=== PATIENT | female | born 2000 | race African-American/Black ===

== ENCOUNTER 2023-09-29 18:57 | Inpatient (IN) | payer BC ==
[~2023-09-29] VITALS: Ht 165.1 cm; Wt 79.7 kg
[~2023-09-29 18:57] MED LIST: Thiamine 100 MG TAB PO SCH
[2023-09-29 20:43] VITALS: BP 124/93; PULSE 122; TEMP 97.5
[2023-09-29] MEDS ORDERED: ADDERALL20 MG PO (20:57)
[2023-09-29] MEDS ORDERED: Pantoprazole 40 MG in NS 10 ML IV SCH (21:00)
[2023-09-29] MEDS ORDERED: Mag/Al Hydrox/Simeth Susp 30 ML CUP PO PRN (21:00)
[2023-09-29] MEDS ORDERED: Ondansetron 4 MG/2 ML VIAL IV PRN (21:00)
[2023-09-29] MEDS ORDERED: Acetaminophen 325 MG TAB PO PRN (21:00)
--- NOTE | 2023-09-29 21:00 | NUR ---
Admitted to medical floor from [facility]-came via EMS,, pleasant , oriented x3, teary when talking about drinking habits, at bedside, states abd pain 8/10, anxious, tremors noted-- states she almost feels "jerky". very thirsty--did drink water and applejuice,, Robin SILVEIRA starting to put in orders- will be up to see her.
[2023-09-29 21:14] VITALS: BP_SYST 132
--- NOTE | 2023-09-29 21:35 | NUR ---
Robin here to see pt - put on CIWA protocol, Fall Risk protocol and seizure precautions-- pads on bed, ordered Librium taper-- would like that given as soon as possible- Martha aware of vitals-- tachy 122, put on Tele.
[2023-09-29] MEDS ORDERED: LORazepam 2 MG/ML 1 ML VIAL IV PRN (21:45)
[2023-09-29] MEDS ORDERED: Folic Acid 1 MG,Thiamine 200 MG in NS 1,000 ML IV ONE (21:45)
[2023-09-29 22:00] VITALS: BP 132/89; PULSE 106; TEMP 98
[2023-09-29 22:00] LABS: URINE APPEARANCE CLEAR (CLEAR/HAZY); URINE BLOOD NEGATIVE (NEGATIVE); URINE COLOR YELLOW (YELLOW); URINE GLUCOSE NEGATIVE (NEGATIVE); URINE KETONE NEGATIVE (NEGATIVE); URINE NITRATE NEGATIVE (NEGATIVE); URINE PROTEIN(semi-quant) NEGATIVE (NEGATIVE)
--- NOTE | 2023-09-29 22:05 | NUR ---
Vitals 132/89,106,98% on RA and 98.0 temp ,, CIWA scaore of 10,, 1 mg of Ativan IV given along with the Librium po. IV fluids started at 125cc/hr {banana bag minus the MVI} as ordered. Robin SILVEIRA aware of vitals and CIWA scaore.
[2023-09-29 22:11] LABS: COLLECTION METHOD CLEAN CATCH
[2023-09-29 22:21] LABS: BASO % 0.6 % (0.0-2.0); GRAN % 57.5 % (42.2-75.2); HEMOGLOBIN 11.1 g/dl (12.0-15.0); LYMPH # 1.8 K/mm3 (1.2-3.4); LYMPH % 34.9 % (20.0-51.0); MEAN CELL VOLUME 74 fl (80.0-95.0); MEAN CORPUSCULAR HEMOGLOBIN 24 pg (26-32); MEAN CORPUSCULAR HGB CONC 32 g/dl (33.0-37.0); MEAN PLATELET VOLUME 9.3 fl (7.4-10.4); MONO # 0.3 K/mm3 (0.1-0.6); MONO % 6.6 % (1.7-9.3); PLATELET COUNT 313 K/mm3 (130-400); RED BLOOD COUNT 4.64 M/mm3 (4.10-5.30); REDCELL DISTRIBUTION WIDTH-CV 23.9 % (11.5-14.5)
[2023-09-29 22:24] LABS: HEMATOCRIT 34.4 % (35.0-45.0)
[2023-09-29 22:41] LABS: ALANINE AMINOTRANSFERASE 19 U/L (0-55); ALBUMIN 4.1 gm/dL (3.5-5.0); ALKALINE PHOSPHATASE 69 U/L (40-150); ANION GAP 20 mmol/L (7-16); AST,SGOT 27 U/L (5-34); BILIRUBIN,TOTAL 0.9 mg/dL (0.2-1.2); BLOOD UREA NITROGEN < 5 mg/dL (7-19); CARBON DIOXIDE 22 mmol/L (22-29); CHLORIDE 99 mmol/L (98-107); CREATININE, serum 0.83 mg/dL (0.57-1.11); GLUCOSE 128 mg/dL (70-99); POTASSIUM 3.5 mmol/L (3.5-4.5); SODIUM 141 mmol/L (136-145); TOTAL PROTEIN 7.4 gm/dL (6.2-8.1)
[2023-09-29 22:41] LABS: C-REACTIVE PROTEIN 0.02 mg/dL (0.00-0.50); MAGNESIUM 1.8 mg/dL (1.6-2.6); PHOSPHOROUS 3.1 mg/dL (2.3-4.7)
[2023-09-29 22:42] LABS: ALCOHOL(ethanol),MEDICAL 165 mg/dL (0-10); LIPASE 173 U/L (8-78)
[2023-09-29 22:48] LABS: ERYTHROCYTE SEDIMENTATION RATE < 1 mm/hr (0-20)
--- NOTE | 2023-09-29 23:30 | NUR ---
Has been sleeping soundly for the past hour-- Robin SILVEIRA called to check on pt, in formed that on Tele remains slightly tachy at 109/min.
[2023-09-29 23:54] VITALS: BP 115/73; PULSE 110; TEMP 97.5
[2023-09-30] VITALS (196 sets, daily range): BP systolic 115–145; BP diastolic 76–99; PULSE 96–120; TEMP 98.3–99.1; O2SAT 97–100
[2023-09-30 00:51] LABS: TRICYCLIC ANTIDEPRESS URINE NEGATIVE (NEGATIVE)
--- NOTE | 2023-09-30 05:54 | NUR ---
ROBERTHMEENAKSHI scaores between 5-10 throughout the night, also getting the Librium taper,, Up to BSC with 2 assists-very unsteady and weak,, pt drowsy, states she is seeing things in her room [her cat etc} but states maybe im just dreaming,,states she doesnt feel good but cannot explain --was given some Zofran for nausea, has been tachy all shift between 100-116 , up to 130,s when on BSC,, has slept some when Ativan IV was given per protocol.
[2023-09-30 07:52] LABS: INR 1.2 (0.8-3.0); PROTHROMBIN TIME 13.6 SECONDS (9.7-12.8)
[2023-09-30 07:55] LABS: PARTIAL THROMBOPLASTIN TIME 31.1 SECONDS (26.0-37.0)
[2023-09-30] MEDS ORDERED: Multivitamin TAB PO SCH (08:00)
[2023-09-30 08:11] LABS: ANION GAP 12 mmol/L (7-16); BLOOD UREA NITROGEN < 5 mg/dL (7-19); CALCIUM 8.9 mg/dL (8.4-10.2); CARBON DIOXIDE 26 mmol/L (22-29); CHLORIDE 99 mmol/L (98-107); CREATININE, serum 0.77 mg/dL (0.57-1.11); GLUCOSE 91 mg/dL (70-99); POTASSIUM 3.8 mmol/L (3.5-4.5); SODIUM 137 mmol/L (136-145)
[2023-09-30] MEDS ORDERED: Folic Acid 1 MG TAB PO SCH (09:00)
[2023-09-30] MEDS ORDERED: LORazepam 1 MG TAB PO PRN (09:15)
[2023-09-30] MEDS ORDERED: PROTONIX 40MG T40 MG PO (10:16)
--- NOTE | 2023-09-30 11:35 | NUR ---
PT WAS BRUSHING TEETH AT SINK WITH PCT WHEN HER KNEES BUCKLED AND SHE LOWERED TO THE FLOOR. PT DID NOT HIT HEAD AND NO INJURIES ARE PRESENT. HOSPITALIST NOTIFIED.
--- NOTE | 2023-09-30 13:08 | NUR ---
D: Initial visit: Seam Feller stopped by room on rounds. Pt was sleeping A: Pt was extremely sleepy and wanted to take a nap. No needs right now. P: Seam Feller informed pt that if she needed anything to let her nurse know. Seam Feller will follow up as needed.
--- NOTE | 2023-09-30 14:46 | NUR ---
workers' compensation hearings officer met with patient to complete intake for discharge planning. Pt reports she recently moved to [place] in [facility] 2022 and lives with her , Christopher [phone]. She reports to not have a PCP, but SW discussed how she lives on [facility] and has Blue [employer] insurance. Pt states this is under her mother. She is aware of the need for her to add her to [facility] or [facility] by phone. She states she does not have a PCP. SW discussed [facility] in [place]. She states she has been doing her own research and follow ups with providers. Pt obtains medications from [facility] with no issues. She is independent with ADLS and uses no DME. She states she completed a DPOA-HC in 2021 listing her father. Pt said their brick pitcher has a copy and could provide this. Pt and SW discussed the admitted consult for alcohol use disorder. Pt reports she was transferred from [facility]. She states her "took away" her alcohol to try to help her and this made things worse and led to the increase in drinking. She stated she uses it for coping and has no suicidal intent. She did realize it was hurting her. She reports in 2021 she had an ectopic then in Mar 2023 she opted for an . Pt reports having strong feelings associated with these events that led to further drinking. Pt said in July 2023 she started drinking more due to moving to [place], isolation, no transportation, and no supports. Pt states she does not have a car and they have been getting a rental and this is stressful. She reports working at [employer] [place] and this is positive for her. Pt states having a few people to talk to, but she has no good friends yet. She states that she has her priorities "all messed up." Pt states she locks herself in their guest room on the weekend and uses the weekend after working to drink heavily. She reports this past weekend she locked herself in the bathroom and attempted to drown herself. She states that her had to put a hole in the door to get into her. Pt informed SW she last saw a therapist in college in 2022 and found it to be helpful. Pt reports co-occurring mental health concerns such as depression and anxiety. She says they are excacerbated with traumas and isolation in [place]. SW discussed inpatient [facility] treatment. Pt reports she is agreeable to this, but expressed she does not want to go to an inpatient psych [place]. SW advised that the [facility] programs are residental, theraupetic settings, and have community aspects. Pt states she does not "want to be tied to a table." SW attempted to reassure her. Pt states she has had conversations with her who supports the need for inpatient treatment. Pt provided consent for [place] specialist, Nubia Zazueta to reach out to provide further information. Pt is agreeable to going out of state if needed and notes her family is from [place]. SW provided update to ROSALVA Peacock and informed her of the suicide attempt to screen patient later. ASUNCION spoke with Nubia Zazueta, [employer] security delivery specialist to aid in inpatient [facility] placement. She is able to provide support and states she will reach out to pt to provide information. ASUNCION faxed referral information and added ASUNCION Snow to Nubia's email chain. ASUNCION called [facility] who reports they have no bed holds and could look into accepting pt. Discharge Plan: inpatient [facility] Placement
[2023-09-30] MEDS ORDERED: diazePAM 5 MG TAB PO SCH (15:00)
[2023-09-30 16:27] LABS: COLLECTION METHOD CLEAN CATCH
[2023-09-30 16:33] LABS: PH 7.5 (5.0-8.5); URINE APPEARANCE CLEAR (CLEAR/HAZY); URINE BLOOD NEGATIVE (NEGATIVE); URINE COLOR YELLOW (YELLOW); URINE GLUCOSE NEGATIVE (NEGATIVE); URINE KETONE NEGATIVE (NEGATIVE); URINE NITRATE NEGATIVE (NEGATIVE); URINE PROTEIN(semi-quant) NEGATIVE (NEGATIVE)
[2023-09-30] MEDS ORDERED: NS 1,000 ML IV ONE (17:00)
--- NOTE | 2023-09-30 18:13 | NUR ---
Pt transfered to ICU from surgical floor at this time. Pt transfered due to high scoring CIWA's and needs for precedex gtt. Precedex started at 0.2mcg/kg/hr and 20mg ativan given for CIWA score of 16; Will reassess CIWA score in 1 hour per protocal. Pt Christopher present during transfer and aware of plan of care.
[2023-09-30] MEDS ORDERED: NS 1,000 ML IV SCH (19:45)
[2023-10-01] VITALS (62 sets, daily range): BP systolic 110–136; BP diastolic 62–92; PULSE 84–123; TEMP 97.3–98.7; O2SAT 81–100
[2023-10-01 04:59] LABS: BASO % 0.2 % (0.0-2.0); EOS # 0.1 K/mm3 (0.0-0.7); EOS % 2.5 % (0.0-4.0); GRAN # 3.1 K/mm3 (1.4-6.5); GRAN % 65.1 % (42.2-75.2); LYMPH # 1.2 K/mm3 (1.2-3.4); LYMPH % 25.4 % (20.0-51.0); MEAN CELL VOLUME 76 fl (80.0-95.0); MEAN CORPUSCULAR HGB CONC 32 g/dl (33.0-37.0); MONO # 0.3 K/mm3 (0.1-0.6); MONO % 6.6 % (1.7-9.3); PLATELET COUNT 225 K/mm3 (130-400); RED BLOOD COUNT 3.71 M/mm3 (4.10-5.30); REDCELL DISTRIBUTION WIDTH-CV 23.9 % (11.5-14.5)
[2023-10-01 05:12] LABS: HEMATOCRIT 28.1 % (35.0-45.0); HEMOGLOBIN 9.1 g/dl (12.0-15.0); MEAN CORPUSCULAR HEMOGLOBIN 25 pg (26-32)
[2023-10-01 05:17] LABS: ALBUMIN 3.4 gm/dL (3.5-5.0); BILIRUBIN,TOTAL 0.8 mg/dL (0.2-1.2); CALCIUM 8.9 mg/dL (8.4-10.2); CREATININE, serum 0.78 mg/dL (0.57-1.11); POTASSIUM 3.7 mmol/L (3.5-4.5); TOTAL PROTEIN 6.1 gm/dL (6.2-8.1)
--- NOTE | 2023-10-01 07:55 | NUR ---
PATIENT APPEARS TO BE ANXIOUS AND STATES "I DON'T FEEL WELL THIS MORNING." CIWA SCORING COMPLETED AND INTERVENTIONS PERFORMED ACCORDING TO PROTOCOL. TREMOR NOTED WHEN ARMS EXTENDED. PATIENT WOULD LIKE TO SPEAK WITH A CUT OFF SAW OPERATOR METAL TODAY. BED IN LOW POSITION AND CALL LIGHT WITHIN REACH. PATIENT IN OBSERVABLE AREA WITH BED ALARMS ON.
[2023-10-01] MEDS ORDERED: Magnesium Oxide 400 MG TAB PO SCH (11:00)
[2023-10-01] MEDS ORDERED: Promethazine 25 MG TAB PO PRN (11:00)
--- NOTE | 2023-10-01 16:19 | NUR ---
steam table worker followed up with Nubia Zazueta with [facility] who reports she needs an accurate phone number for pt as she couldn't reach her. SW provided number and confirmed with pt. SW spoke with patient regarding continued efforts for placement for alcohol use. She was still agreeable, but prefers [place] then [place] locations. Pt reports she talked to her , Christopher and he is supportive and aware of the situation. She reports that she feels guilty and worries about his job or him missing work to be in the hospital. SW notes he is in the [employer]. Pt states she is agreeable to SW calling to clarify, confirm information, and provide update. SW spoke with , Christopher who reports some confusion regarding the plan for pt as he was given a lot of information at once. SW advised pt is ICU status due to being on a drip medication not offered on the floor, and scoring high for detox. ASUNCION reports pt was interested in going to an inpatient program for alcohol. Christopher verbalized understanding and awareness. He reports to SW that the day pt's alcohol was "hidden" is when she locked herself in the bathrom and she attempted to drown herself by putting water in her face. He states that pt did open the door before he burst it down. He feels these two events are directly related. He was aware in the increasing levels of alcohol consumption and reports trying to talk with her further about it. He states he remains supportive of her treatment. SW advised pt reports concerns regarding finances and job stablity. ASUNCION [place] [facility] and Marriage, Family, Life Counselor who provide resources. Christopher reports his leadership is supportive and he will meet with them today to provide an update. He has no further questions regarding next steps. He intends to add pt to his . ASUNCION spoke with Nubia Zazueta and states she can contact pt/. She reports she is working on the insurance aspect. ASUNCION faxed additional referrals to [facility] programs in [facility] and [place], [place]. Discharge Plan: [facility] program
--- NOTE | 2023-10-01 19:25 | NUR ---
PT IN BED AND ALERT. FAMILY PATIENT AT THIS TIME. NO ACUTE EVENTS. PICC IN [place] WITH NO CURRENT INFUSIONS.
[2023-10-02] VITALS: BP 137/77; PULSE 124; TEMP 97.9
[2023-10-02 04:00] VITALS: BP 133/91; PULSE 93; TEMP 97.5
[2023-10-02 04:51] LABS: CALCIUM 8.6 mg/dL (8.4-10.2); CREATININE, serum 0.77 mg/dL (0.57-1.11); POTASSIUM 3.9 mmol/L (3.5-4.5)
--- NOTE | 2023-10-02 07:45 | NUR ---
Report received from ROSALVA Jarrett; patient currently sitting in bed with TV on; no meds or fluids are running through her peripheral INT. Patient is on room air and no other lines or tubes are in place at this time. Patient's vital signs are within normal limits this morning.
[2023-10-02 08:00] VITALS: BP 136/83; PULSE 112; TEMP 98.6
--- NOTE | 2023-10-02 10:10 | NUR ---
Initial visit; Patient thanked Fabrics And Material Cutter for looking in on her and offering Spiritual Care. Fabrics And Material Cutter encouraged Shaye to talk about what triggered her recent issues with alcohol. She stated that after she experienced an Ectopic she started drinking again. Fabrics And Material Cutter inquired as to what she is going to do to help herself at this point to which she replied she will go to outpatient therapy for addictions. Fabrics And Material Cutter wished her well and offered God's blessings and will keep Shaye in her prayers which made her smile.
[2023-10-02 12:00] VITALS: BP 135/91; PULSE 110; TEMP 98.8
--- NOTE | 2023-10-02 15:39 | NUR ---
harvest worker attended clinical rounding and was informed pt can likely transfer to medical floor today. Pt reported to Dr. Morgan she is having suicidal ideation with no plan. She requests to talk to tele psych for med management. Dr. Morgan placed orders. Pt reports to this SW she is afraid due to having paranoia and hallucinations of staff watching her, 's in the room, and hearing her mom's voice. SW attempted to reassure pt and provide support. Pt reports no plan, just suicidal thoughts. Pt requests SW speak with her mother as she feels unclear on the discharge plan. Pt called her mother on personal phone to have SW provide update. SW provided update to mother and why pt moved to ICU from med/surg floor. She reports pt has been incoherent and hard to decifer at times. SW stated they are working to get pt added to [employer] insurance and help transition pt to an inpatient program in [place]. Mother verbalized understanding and was grateful to discuss. Pt had no further questions and wanted SW to call her to follow up on the . ASUNCION spoke with Christopher, ignacio who states he will call [facility] after they disconnect the call. He had no further questions. ASUNCION spoke with [place] u[employer]s. representative, Nubia Zazueta for an update on placement. She reports to be working on the insurance aspect and having pt on would be essential as they provide transportation. She states she cannot give an out of pocket cost until both insurances are on the account. She reports patient will have the option to be on a payment plan. Nubia reports the facility as [facility] in [place], [place]. She emailed ASUNCION an authorization form to complete with and fax to [facility]. ASUNCION completed residential treatment authorization with Dr. Morgan's assistance. ASUNCION faxed this to [phone]. ASUNCION recieved acceptances from both [facility] in [place] and [place]. ASUNCION spoke with RN who states pt will see tele psych then be screened by Jeane. ASUNCION made her aware of SW intent to transfer to [facility] program, if able. Discharge Plan: inpatient [facility]
[2023-10-02 16:00] VITALS: BP 148/105; PULSE 123; TEMP 97.7
--- NOTE | 2023-10-02 18:30 | NUR ---
While this nurse was in the room patient started having "tremors" and laid back in bed and continued to shake. When this nurse asked the patient if this is what her "seizures" looked like, patient responded "No, I'm just having tremors". Patient never lost consciousness or control of bowels/bladder, and was able to answer questions both during her "seizure" and immediately afterwards. Patient initially refusing Ativan but then when it was explained that if she is having seizures and actively withdrawing from alcohol that Ativan would help minimize those side effects, patient was agreeable to taking the Ativan.
[2023-10-02 20:00] VITALS: BP 160/95; PULSE 121; TEMP 98.2
--- NOTE | 2023-10-02 21:45 | NUR ---
Received report from ROSALVA Raymond. Pt is currently alert and sitting up in bed with call light within reach and bed alarms on. Pt's vitals are stable at this time. Pt does not look in distress at this time. No drips running at this time. Will continue with pt care.
[2023-10-03] VITALS: BP 106/66; PULSE 93; TEMP 98.2
[2023-10-03 04:00] VITALS: BP 127/98; PULSE 111; TEMP 97.8
--- NOTE | 2023-10-03 06:24 | NUR ---
Pt had an uneventful night. Pt slept most of the night and has been scoring a 0 most of the night for most of the night with the highest score of a 10 at the beginning of the shift. Pt's vitals have been stable throughout the night. Pt is currently sleep with the bed alarms on and call light within reach. Pt on room air and has no drips running.
[2023-10-03 08:00] VITALS: BP 161/114; PULSE 120; TEMP 98.3
--- NOTE | 2023-10-03 08:17 | NUR ---
PATIENT APPEARS TO BE RESTING, SITTING UP IN BED, TALKING ON HER PHONE. SHE DENIES PAIN, OR SI AT THIS TIME. WILL CONTINUE TO MONITOR FOR CHANGES.
[2023-10-03] MEDS ORDERED: Gabapentin 300 MG CAP PO SCH (09:00)
[2023-10-03] MEDS ORDERED: Sertraline 50 MG TAB PO SCH (09:00)
[2023-10-03] MEDS ORDERED: Metoprolol Tartrate 25 MG TAB PO SCH (09:37)
--- NOTE | 2023-10-03 09:38 | NUR ---
Follow-up visit: Patient states that she is doing well and thanked National Business Director for checking up on her. Shaye is smiling and eating and appears to feel better. National Business Director wished her well and offered God's blessings.
[2023-10-03] MEDS ORDERED: Melatonin 3 MG TAB PO PRN (09:45)
[2023-10-03] MEDS ORDERED: hydrOXYzine HCl 25 MG TAB PO PRN (09:45)
--- NOTE | 2023-10-03 11:17 | NUR ---
sand worker attended clinical rounding and was informed pt can discharge home today if [place] approves. SW spoke with pt who reports she was added to . She completed the assessment for [facility] rehab at [facility]. SW advised the next steps if she was discharged today and how she needs to stay sober. Pt verbalized understanding. She inquired about an emotional support animal as the assessment individual brought this up and pt has a cat. SW advised she would have to follow-up as she is unsure if they can do this. Pt does not have a Pschiatrist/therapist. SW spoke with Dr. Morgan who would be agreeable to signing for a [facility]. SW then spoke with pt to provide documents, which she did not have. Pt reports it can be a general statement including; why it would be good for her anxiety, signature, and contact information. SW was unsure if this could be done and relayed to SW team to see. ASUNCION spoke with [employer] employee's representative who reports they are still waiting on auth from [facility] and a case loader operator from [facility] before they can proceed. SW advised pt will likely discharge home today after [place] screens. jeanna verbalized understanding of the plan. Discharge Plan: home if [place] allows, then [facility] program
[2023-10-03 12:00] VITALS: BP 131/111; PULSE 86; TEMP 98.2
[2023-10-03] MEDS ORDERED: DUO-KAPS1 CAP PO (14:50)
[2023-10-03] MEDS ORDERED: NATURE'S BLEND100 M2 PO (14:51)
[2023-10-03] MEDS ORDERED: FOLIC ACID 11 MG/TA1 PO (14:51)
[2023-10-03] MEDS ORDERED: ZOLOFT 50MG50 MG PO (14:51)
[2023-10-03] MEDS ORDERED: NEURONTIN300 MG/CAP PO (14:51)
--- NOTE | 2023-10-03 16:25 | NUR ---
Patient discharged with outpatient resources in hand. Education regarding crisis services, phone numbers, hotlines, and 7th grade social studies teacher information reviewed with patient. PICC was removed without complication. New medications sent to [facility] pharmacy in [facility] at time of discharge. Patient was escorted to POV with ready for nut picker. All belongings gathered and returned to patient at time of discharge.
--- NOTE | 2023-10-06 12:56 | NUR ---
fiber optic assembly worker recieved an email from Nubia Zazueta, [facility] desktop publishing specialist, who requested SW re-send the Prior Authorization request. SW re-faxed this to [phone].
== END 2023-10-03 16:20 | disposition home or self-care (01) | DRG 897 ==
LOC: SURG 18:57 → ICU 21:49
PROVIDERS: Physician Assistant; ADMIT Internal Medicine
DX: F10.939 Alcohol use, unspecified with withdrawal, unspecified (principal); F41.9 Anxiety disorder, unspecified; F32.A Depression, unspecified; R56.9 Unspecified convulsions; K37 Unspecified appendicitis
CPT/HCPCS: C1751; C1892; C9113; G0378; G0379; J1650; J2060; J2405; J3411; J7030; Q3014